=== PATIENT | female | born 1955 | race American Indian/Alaskan Native ===

== ENCOUNTER 2017-06-28 08:28 | Emergency (ER) | payer BC ==
[2017-06-28] MEDS ORDERED: ASPIRIN PO ONE (08:48)
[2017-06-28 09:36] LABS: Basophils # (Auto) 0.1 K/mm3 (0.0-0.1); Basophils % (Auto) 0.6 % (0.0-1.8); Eosinophils # (Auto) 0.3 K/mm3 (0.0-0.4); Eosinophils % (Auto) 2.8 % (0.0-4.3); Hematocrit 37.8 % (30.3-42.9); Hemoglobin 12.6 gm/dl (10.1-14.3); Lymphocytes # (Auto) 3.7 K/mm3 (1.2-5.4); Lymphocytes % (Auto) 39.3 % (13.4-35.0); Mean Corpuscular HGB Conc 33 % (30-34); Mean Corpuscular Hemoglobin 27 pg (28-32); Mean Corpuscular Volume 82 fl (79-97); Monocytes # (Auto) 0.7 K/mm3 (0.0-0.8); Monocytes % (Auto) 7.5 % (0.0-7.3); Platelet Count 180 K/mm3 (140-440); Red Cell Distribution Width 14.7 % (13.2-15.2)
[2017-06-28] MEDS ORDERED: MOTRIN PO ONE (09:45)
[2017-06-28 09:50] LABS: BUN/Creatinine Ratio 28; Blood Urea Nitrogen 22 mg/dL (7-17); Calcium 9.3 mg/dL (8.4-10.2); Hemolysis Index 2
[2017-06-28] MEDS ORDERED: CATAPRES PO ONE (09:55)
[2017-06-28] MEDS ORDERED: TORADOL IM ONE (09:59)
[2017-06-28] MEDS ORDERED: FLEXERIL PO ONE (09:59)
--- NOTE | 2017-06-28 10:01 | Emergency Department Report ---
Blank Doc - Documentation Documentation: Patient is a 61-year-old female history of hypertension and diabetes who is presenting with left-sided chest pain. Patient states it hurts worse when she moves and lifts her arm. She does do some heavy lifting at work. Patient denies any shortness of breath or pleuritic chest pain. Patient's EKG is within normal limits because of her history of diabetes and possibility of atypical presentation f chest pain and the fact that the patient has had 2 episodes of chest pain in the last several months we will do a least 2 troponins to rule out OR at this time. Patient will be reassessed but BRYSON or
--- NOTE | 2017-06-28 10:06 | Emergency Department Report ---
ED Chest Pain HPI - General Chief Complaint: Extremity Problem,Nontraumatic Stated Complaint: BREAST PAIN Time Seen by Provider: 06/28/17 09:36 Source: patient Mode of arrival: Ambulatory Limitations: No Limitations - History of Present Illness Initial Comments: This is a 61-year-old female nontoxic, well nourished in appearance, no acute signs of distress presents to the ED with c/o of left lateral chest pain. Patient stated pain started yesterday during work and worsened when she wake up this morning around 4 AM. 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 Patient stated that chest pain is relieved with rest and aggravated with movement of the left upper arm and palpation. Patient denies pleuritic chest pain. Patient denies shortness of breathe, fever , chills, headache, nausea, vomiting, numbness, tingling, back pain, or hemoptysis. Patient states allergies to PCN. PMH includes HTN and DM. Patient stated she missed her dose of blood pressure medication this morning. MD Complaint: chest pain -: This morning Onset: other (movement and palpation) Pain Location: left chest Pain Radiation: none Severity: mild Severity scale (0 -10): 8 Quality: aching Consistency: intermittent Improves With: rest Worsens With: palpation, movement re: denies: nausea, vomting, diaphoresis, dyspnea, sense of impending doom Other Symptoms: denies: cough, fever, syncope, rash, acid taste in mouth, leg swelling, palpitations, burping Treatments Prior to Arrival: none Aspirin use within the Past 7 Days: (0) No - Related Data On Oral Contraceptives: No Previous Rx's Medication Instructions Recorded Last Taken Type Cyclobenzaprine [Flexeril] 10 mg PO QHS PRN #7 tablet 06/28/17 Unknown Rx Ibuprofen [Motrin] 600 mg PO Q8H PRN #30 tablet 06/28/17 Unknown Rx Allergies Allergy/AdvReac Type Severity Reaction Status Date / Time Penicillins Allergy Hives Verified 06/28/17 08:42 Heart Score - HEART Score History: Slightly suspicious EKG: Normal Age: 45-65 Risk factors: 1-2 risk factors Troponin: < normal limit HEART Score: 2 - Critical Actions Critical Actions: 0-3 pts:0.9-1.7%risk of adverse cardiac event.Candidate for discharge ED Review of Systems ROS: Stated complaint: BREAST PAIN Other details as noted in HPI Constitutional: denies: chills, fever Eyes: denies: eye pain, eye discharge, vision change ENT: denies: ear pain, throat pain Respiratory: denies: cough, shortness of breath, wheezing Cardiovascular: chest pain. denies: palpitations Endocrine: no symptoms reported Gastrointestinal: denies: abdominal pain, nausea, diarrhea Genitourinary: denies: urgency, dysuria, discharge Musculoskeletal: denies: back pain, joint swelling, arthralgia Skin: denies: rash, lesions Neurological: denies: headache, weakness, paresthesias Psychiatric: denies: anxiety, depression Hematological/Lymphatic: denies: easy bleeding, easy bruising ED Past Medical Hx - Past Medical History Hx Hypertension: Yes Hx Diabetes: Yes - Social History Smoking Status: Current Every Day Smoker Substance Use Type: None - Medications Home Medications: Home Medications Medication Instructions Recorded Confirmed Last Taken Type Cyclobenzaprine [Flexeril] 10 mg PO QHS PRN #7 tablet 06/28/17 Unknown Rx Ibuprofen [Motrin] 600 mg PO Q8H PRN #30 tablet 06/28/17 Unknown Rx ED Physical Exam - General Limitations: No Limitations General appearance: alert, in no apparent distress - Head Head exam: Present: atraumatic, normocephalic - Eye Eye exam: Present: normal appearance Pupils: Present: normal accommodation - ENT ENT exam: Present: normal exam, mucous membranes moist - Neck Neck exam: Present: normal inspection, full ROM. Absent: tenderness, meningismus, lymphadenopathy - Respiratory Respiratory exam: Present: normal lung sounds bilaterally. Absent: respiratory distress, wheezes, rales, rhonchi, stridor, chest wall tenderness, accessory muscle use, decreased breath sounds, prolonged expiratory - Cardiovascular Cardiovascular Exam: Present: regular rate, normal rhythm, normal heart sounds. Absent: bradycardia, tachycardia, irregular rhythm, systolic murmur, diastolic murmur, rubs, gallop - GI/Abdominal GI/Abdominal exam: Present: soft, normal bowel sounds. Absent: distended, tenderness, guarding, rebound, rigid, diminished bowel sounds - Rectal Rectal exam: Present: deferred - Extremities Exam Extremities exam: Present: normal inspection, full ROM, normal capillary refill - Back Exam Back exam: Present: normal inspection, full ROM - Neurological Exam Neurological exam: Present: alert, oriented X3, normal gait - Psychiatric Psychiatric exam: Present: normal affect, normal mood - Skin Skin exam: Present: warm, dry, intact, normal color. Absent: rash ED Course Vital Signs 06/28/17 06/28/17 06/28/17 08:37 09:55 11:52 Temperature 98 F Pulse Rate 76 56 L 55 L Respiratory 18 22 Rate Blood Pressure 148/104 Blood Pressure 173/62 118/75 [Left] O2 Sat by Pulse 95 100 97 Oximetry - Reevaluation(s) Reevaluation #1: 06/28/17 10:22 Patient is speaking in full sentences with no signs of distress noted. Reevaluation #2: 06/28/17 11:16 Patient is rest comfortably with no signs of distress. Patient stated that symptoms has resolved after medical treatment. Vital signs stable. Pending 2nd troponin. - Consultations Consultation #1: 06/28/17 10:22 Patient has been consulted with Dr. Mireles about patient history, physical exam , and labs and examined and screened patient and agrees to ED plan of care and discharge plan of care. MUNIRA score - Munira Score Age > 65: (0) No Aspirin use within the Past 7 Days: (0) No 3 or more CAD Risk Factors: (0) No 2 or more Angina events in past 24 hrs: (0) No Known CAD with more than 50% Stenosis: (0) No Elevated Cardiac Markers: (0) No ST Deviation Greater than 0.5mm: (0) No MUNIRA Score: 0 ED Medical Decision Making - Lab Data Result diagrams: 06/28/17 08:54 06/28/17 08:54 - Medical Decision Making This is a 61-year-old female that presents with left muscle chest strain. Patient is stable and was examined by me. Xray of chest has been obtained and dictated by the radiologist. EKG obtained with normal sinus rhythm and No ST abnormalities. Labs obtained with 2 negative trop. Patient recevied Troadol and flexeril in the ED which patient symptoms has resolved and subsided. Patient was instructed not to operate any machinery after discharged due to possible drowsiness of Flexeril which patient stated that a family member will pick her up and drive her home after discharge. HEART and MUNIRA score within normal limits. Patient was instructed to Follow-up with a primary care doctor in 3-5 days or if symptoms worsen and continue return to emergency room as soon as possible. At time of discharge, the patient does not seem toxic or ill in appearance. No acute signs of distress noted. Patient agrees to discharge treatment plan of care. No further questions noted by the patient. Critical care attestation.: If time is entered above; I have spent that time in minutes in the direct care of this critically ill patient, excluding procedure time. ED Disposition Clinical Impression: Left sided chest pain Disposition: DC-01 TO HOME OR SELFCARE Is pt being admited?: No Does the pt Need Aspirin: No Condition: Stable Instructions: Chest Pain (ED), Muscle Strain (ED), Ibuprofen (By mouth), Cyclobenzaprine (By mouth) Additional Instructions: Follow-up with a primary care doctor in 3-5 days or if symptoms worsen and continue return to emergency room as soon as possible. Take ibuprofen and Flexeril as prescribed. Do not operate heavy machinery while taking Flexeril due to sedation Prescriptions: Cyclobenzaprine [Flexeril] 10 mg PO QHS PRN #7 tablet PRN Reason: Muscle Spasm Ibuprofen [Motrin] 600 mg PO Q8H PRN #30 tablet PRN Reason: Pain Referrals: PRIMARY CARE, [Referring] - 3-5 Days RAFIA HSIEH MD [Staff Physician] - 3-5 Days [facility] [Outside] - 3-5 Days [facility] [Outside] - 3-5 Days Forms: Work/School Release Form(ED)
--- NOTE | 2017-06-28 11:04 | XRay Report ---
ROUTINE CHEST, TWO VIEWS: HISTORY: chest pain. The trachea, heart, mediastinal contour, lung richards and bony thorax are unremarkable. IMPRESSION: Unremarkable chest x-ray.
[2017-06-28 11:52] VITALS: BP 118/75
== END 2017-06-28 12:45 | disposition home or self-care (01) ==
LOC: ED 08:28
DX: I10 Essential (primary) hypertension (principal); E11.9 Type 2 diabetes mellitus without complications; F17.200 Nicotine dependence, unspecified, uncomplicated; Z88.0 Allergy status to penicillin
CPT/HCPCS: 36415; 71046; 80048; 84484; 85025; 93005; 93010; 96372; 99284; J1885

== ENCOUNTER 2017-08-09 08:57 | Outpatient (CLI) | payer BC ==
--- NOTE | 2017-08-09 16:34 | Ultrasound Report ---
FINAL REPORT EXAM: US TRANSVAGINAL HISTORY: PELVIC AND PERINEAL PAIN TECHNIQUE: Ultrasound evaluation of the pelvis using TRANSVAGINAL technique PRIORS: Transabdominal pelvic ultrasound 08/09/2017 FINDINGS: Uterus size and shape are normal, 7.0 x 3.2 x 4.7 cm. No evidence of uterine mass. Nonspecific scattered punctate echogenic foci may be vascular atherosclerotic calcification. The endometrium is homogenous. Endometrial thickness is 4.0mm. There is no slight cul-de-sac free fluid and slight free fluid adjacent to the left adnexa. Normal ovarian size. No evidence of solid ovarian mass. Ovarian/adnexal blood flow is present. The adnexa are normal. Ovarian punctate echogenic foci may also be vascular atherosclerotic calcification. Right ovary: 4.4 x 2.7 x 2.7 cm Left ovary: 3.9 x 2.5 x 1.5 cm IMPRESSION: Nonspecific slight cul-de-sac and left adnexal free fluid Nonspecific uterine and ovarian punctate echogenic foci may be atherosclerotic vascular calcification No evidence of pelvic mass
--- NOTE | 2017-08-09 16:34 | Ultrasound Report ---
FINAL REPORT EXAM: US PELVIC COMPLETE HISTORY: PELVIC AND PERINEAL PAIN TECHNIQUE: Ultrasound evaluation of the pelvis using TRANSABDOMINAL technique PRIORS: Endovaginal pelvic ultrasound 08/09/2017 FINDINGS: Uterus size and shape are normal, 7.0 x 3.2 x 4.7 cm. No evidence of uterine mass. Nonspecific scattered punctate echogenic foci may be vascular atherosclerotic calcification. The endometrium is homogenous. Endometrial thickness is 4.0mm. There is no slight cul-de-sac free fluid and slight free fluid adjacent to the left adnexa. Normal ovarian size. No evidence of solid ovarian mass. Ovarian/adnexal blood flow is present. The adnexa are normal. Ovarian punctate echogenic foci may also be vascular atherosclerotic calcification. Right ovary: 4.4 x 2.7 x 2.7 cm Left ovary: 3.9 x 2.5 x 1.5 cm IMPRESSION: Nonspecific slight cul-de-sac and left adnexal free fluid Nonspecific uterine and ovarian punctate echogenic foci may be atherosclerotic vascular calcification No evidence of pelvic mass
== END 2017-08-09 08:58 | disposition home or self-care (01) ==
LOC: US 08:57
PROVIDERS: ATTEND Obstetrics & Gynecology
DX: Z12.31 Encounter for screening mammogram for malignant neoplasm of breast (principal); R10.2 Pelvic and perineal pain; R93.8 Abnormal findings on diagnostic imaging of other specified body structures; F17.210 Nicotine dependence, cigarettes, uncomplicated; I10 Essential (primary) hypertension; E11.9 Type 2 diabetes mellitus without complications; E07.9 Disorder of thyroid, unspecified
CPT/HCPCS: 76830; 76856; 77067

== ENCOUNTER 2017-09-13 08:53 | Outpatient (CLI) | payer BC ==
--- NOTE | 2017-09-13 17:01 | Cat Scan Report ---
FINAL REPORT EXAM: CT ABDOMEN PELVIS W CON HISTORY: LEFT LOWER QUADRANT PAIN TECHNIQUE: Initially, CT of the abdomen and pelvis was performed after the administration of intravenous contrast. Subsequently, CT of the abdomen and pelvis was performed in the delayed phase. Reconstructions were included in the coronal and sagittal planes. PRIORS: Pelvic ultrasound from 08/09/2017. FINDINGS: Lower thorax: In the medial aspect of the right lower lobe, there is a focal ovoid patchy opacity measuring 17 millimeters. The visualized portions of the heart are normal. Liver: The liver is diffusely nodular in contour consistent with hepatic cirrhosis. No intrahepatic biliary duct dilation. There is a subtle focal area of hyper enhancement in the periphery of the right hepatic lobe on series 2, image 19 measuring approximately 11 millimeters. Gallbladder/ biliary system: Cholelithiasis is seen. The common bile duct appears nondilated. Spleen: No splenic lesions are seen. Pancreas: In the tail of the pancreas, there is a multilobular low-attenuation lesion with peripheral calcifications measuring 3.4 x 2.0 centimeters. No pancreatic duct dilation. No peripancreatic inflammation. Kidneys: No renal masses, cysts or hydronephrosis. Adrenal glands: No adrenal masses. Vasculature: Upper abdominal varices are seen. Paraesophageal varices are seen. The abdominal aorta is nondilated. Atherosclerotic calculi are seen in the abdominal aorta. Lymph nodes: No enlarged lymph nodes are seen in the abdomen or pelvis. Bowel, mesentery, peritoneum: No bowel obstruction. No free fluid or free air. The appendix is normal. No colonic diverticulosis. No bowel wall thickening. There is a moderate volume of retained stool throughout the colon. Urinary bladder: No filling defects are seen. Pelvis: Normal anatomy is noted. No masses. Abdominal wall: No abdominal wall hernia or other subcutaneous findings. Bones: Degenerative changes are seen in the spine. Grade 1 anterolisthesis of L4 on L5 is likely chronic related to degenerative change. IMPRESSION: 1. Findings of hepatic cirrhosis with upper abdominal and paraesophageal varices. 2. Nonspecific hyper attenuating lesion in the periphery of the right hepatic lobe may represent a transient hepatic attenuation difference versus a regenerative nodule. Hepatocellular carcinoma is not excluded. Recommend further evaluation with dedicated hepatic CT or MRI. 3. Nonspecific pancreatic tail lesion. This can be further assessed on the dedicated hepatic study. 4. Small nodular opacity in the medial aspect of the right lower lobe may represent scarring versus a pulmonary nodule. Recommend further evaluation with chest CT to assess for other pulmonary nodules. 5. Cholelithiasis. 6. Moderate retained stool in the colon.
--- NOTE | 2017-09-15 06:01 | Magnetic Resonance Report ---
FINAL REPORT EXAM: MR UE JOINT RT WO CON HISTORY: PAIN IN RIGHT WRIST TECHNIQUE: Multisequence, multiplanar MR imaging is obtained through right wrist without contrast PRIORS: None. FINDINGS: A vitamin-E marker is present at the distal aspect of the radius. Subjacent to the marker indicating area of patient pain, there is abductor pollicis longus tendinosis and tenosynovitis seen on axial series 6, images 5-12. Remaining extensor compartments of the wrist are unremarkable. There is mild proximal and ulnar sided edema within the lunate bone on coronal series 8, image 12. No ulnar variance identified. The lunotriquetral ligament appears intact. No fracture or other marrow edema. Type 2 lunate morphology. No hamatolunate edema. No erosive arthropathy or significant intercarpal degenerative findings. There is a 3 millimeter accessory ossicle at the dorsal lip of the distal radius. The scapholunate ligament is intact. The triangular fibrocartilage appears intact. There is fluid in the pre styloid recess, which is within normal limits. Unremarkable appearance of the contents of the carpal tunnel to include the median nerve. Guyon's canal is also unremarkable. IMPRESSION: Mild abductor pollicis longus tendinosis and tenosynovitis are suggested and correspond to area of patient pain as indicated by placed marker. Mild edema in the proximal and ulnar aspect of the lunate bone without fracture or obvious ligamentous injury. There is also no ulnar variance or distal ulnar signal abnormality. Correlation with radiographs for chondrocalcinosis/pyrophosphate arthropathy and/or small erosion is requested.
== END 2017-09-13 08:54 | disposition home or self-care (01) ==
LOC: MRI 08:53
PROVIDERS: ATTEND Orthopaedic Surgery
DX: K80.20 Calculus of gallbladder without cholecystitis without obstruction (principal); M25.531 Pain in right wrist; K86.89 Other specified diseases of pancreas; I85.00 Esophageal varices without bleeding; I70.0 Atherosclerosis of aorta; M47.896 Other spondylosis, lumbar region; K74.60 Unspecified cirrhosis of liver; C22.0 Liver cell carcinoma; R91.1 Solitary pulmonary nodule; F17.210 Nicotine dependence, cigarettes, uncomplicated; I10 Essential (primary) hypertension; E11.9 Type 2 diabetes mellitus without complications; R60.0 Localized edema
CPT/HCPCS: 73221; 74177; Q9967

== ENCOUNTER 2017-09-28 09:02 | Outpatient (CLI) | payer BC ==
[2017-09-28 09:35] LABS: Basophils % (Auto) 0.5 % (0.0-1.8); Eosinophils # (Auto) 0.2 K/mm3 (0.0-0.4); Eosinophils % (Auto) 2.3 % (0.0-4.3); Hematocrit 35.1 % (30.3-42.9); Hemoglobin 12.1 gm/dl (10.1-14.3); Lymphocytes # (Auto) 3.3 K/mm3 (1.2-5.4); Mean Corpuscular HGB Conc 34 % (30-34); Mean Corpuscular Hemoglobin 28 pg (28-32); Mean Corpuscular Volume 81 fl (79-97); Monocytes # (Auto) 0.6 K/mm3 (0.0-0.8); Monocytes % (Auto) 6.5 % (0.0-7.3); Platelet Count 190 K/mm3 (140-440); Red Blood Count 4.32 M/mm3 (3.65-5.03); Red Cell Distribution Width 14.3 % (13.2-15.2)
[2017-09-28 09:45] LABS: INR 0.97 (0.87-1.13); Partial Thromboplastin Time 25.9 Sec. (24.2-36.6)
[2017-09-28 09:57] LABS: Alanine Aminotransferase 15 units/L (7-56); Albumin 4.2 g/dL (3.9-5); BUN/Creatinine Ratio 21; Blood Urea Nitrogen 19 mg/dL (7-17); Calcium 9.4 mg/dL (8.4-10.2); Hemolysis Index 0
== END 2017-09-28 09:03 | disposition home or self-care (01) ==
LOC: LAB 09:02
PROVIDERS: ATTEND Internal Medicine Gastroenterology
DX: B18.2 Chronic viral hepatitis C (principal); I10 Essential (primary) hypertension; E11.9 Type 2 diabetes mellitus without complications; F17.210 Nicotine dependence, cigarettes, uncomplicated; Z88.0 Allergy status to penicillin
CPT/HCPCS: 36415; 80053; 82106; 82140; 85025; 85610; 85730; 87517

== ENCOUNTER 2017-10-04 07:09 | Outpatient (CLI) | payer BC ==
--- NOTE | 2017-10-08 13:01 | Magnetic Resonance Report ---
MRI ABDOMEN WITHOUT AND WITH CONTRAST : 10/04/17 07:30:00 CLINICAL: Chronic viral hepatitis C and abnormal blush of enhancement in the right hepatic lobe as well as a pancreatic tail mass on CT. COMPARISON :09/13/17 CT abdomen and pelvis with contrast TECHNIQUE: Axial T1 in phase and opposed phase, coronal and axial T2 and axial T2 fat sat sequences plus multiphase postcontrast T1 fat sat sequences plus thin and thick slab MRCP sequences on a 1.5 Marcella magnet. 12 cc of Multihance was injected intravenously for the contrast portion of the exam and consent was obtained prior to the administration of the contrast. FINDINGS: The quality of the examination is degraded by breathing motion and coughing throughout the examination. The liver is small with the right lobe measuring 13.5 cm in length. Surface nodularity of the left hepatic lobe and mild heterogeneous diffuse hepatic signal post contrast. However, no distinct liver mass is identified. No corresponding blush of enhancement in the anterior right hepatic lobe as seen on the CT. However, there is too much motion on this exam to exclude such a lesion. Normal hepatic veins and portal vein. No evidence of portal venous thrombus. No varices or portosystemic collateral vessels are identified. The gallbladder and bile ducts are normal. A multicystic enhancing pancreatic tail mass measures approximately 3.7 x 2.4 cm. The mass consists of at least three distinct cysts measuring approximately 1.5 cm each. These cysts demonstrate hyperintensity on the T1 nonenhanced sequence and demonstrate moderate cyst wall enhancement postcontrast. The wall enhancement washes out on delayed sequences. The rest of the pancreas is normal with a normal size pancreas and no signs of pancreatitis. The stomach and duodenum are normal. The spleen is upper limits of normal in size and measures 11 cm. The adrenal glands and kidneys are normal. Normal aorta and inferior vena cava. No ascites. IMPRESSION: 1. Hepatic cirrhosis but no signs of portal hypertension. 2. The quality of the examination is insufficient for accurate evaluation of hepatic nodularity, assessment of abnormal enhancement and for identifying and excluding hepatic tumor. 3. 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 4. No signs of acute or chronic pancreatitis.
== END 2017-10-04 07:10 | disposition home or self-care (01) ==
LOC: MRI 07:09
PROVIDERS: ATTEND Internal Medicine Gastroenterology
DX: K74.60 Unspecified cirrhosis of liver (principal); K86.2 Cyst of pancreas; I10 Essential (primary) hypertension; E11.9 Type 2 diabetes mellitus without complications; F17.210 Nicotine dependence, cigarettes, uncomplicated; Z88.0 Allergy status to penicillin
CPT/HCPCS: 74183

== ENCOUNTER 2017-11-30 10:30 | Emergency (ER) | payer BC ==
[2017-11-30 10:56] VITALS: BP 171/84
[2017-11-30] MEDS ORDERED: TORADOL IM ONE (11:23)
--- NOTE | 2017-11-30 11:26 | Emergency Department Report ---
ED Lower Extremity HPI - General Chief Complaint: Extremity Injury, Lower Stated Complaint: PAIN OM GROIN AREA Source: patient Mode of arrival: Ambulatory Limitations: No Limitations - History of Present Illness Initial Comments: a 62-year-old after Citizen [place] female who presents with right forearm pain and right thigh numb for 1 year. Patient reports symptoms increased over the past few days but today unbearable. Patient reports pain is 7 out of 10 on pain scale and worse with ambulation or movement. She reports pain is a dull achy sensation that is constant. Patient reports some numbness to left thigh. States it feels like something is pushing by constantly. She is currently taken [place] is without improvement of symptoms. Patient states she went to [facility] [facility] Dr. Meade in August and had multiple tests including MRI but did not receive results. She denies swelling, erythema, paresthesia, weakness, fever recent injury, and chest pain. - Related Data Home Medications Medication Instructions Recorded Confirmed Last Taken metFORMIN [Glucophage] 500 mg PO QPM 10/19/16 10/19/16 10/18/16 Previous Rx's Medication Instructions Recorded Last Taken Type Losartan [Cozaar] 50 mg PO QDAY #30 tablet 10/20/16 Unknown Rx Metformin HCl [Glucophage] 1,000 mg PO BID #60 tablet 10/20/16 Unknown Rx amLODIPine 5 mg PO DAILY #30 10/20/16 Unknown Rx Cyclobenzaprine [Flexeril] 10 mg PO QHS PRN #7 tablet 06/28/17 Unknown Rx Ibuprofen [Motrin] 600 mg PO Q8H PRN #30 tablet 06/28/17 Unknown Rx Naproxen [Naprosyn] 500 mg PO TID #15 tablet 11/30/17 Unknown Rx Allergies Allergy/AdvReac Type Severity Reaction Status Date / Time Penicillins Allergy Hives Verified 11/30/17 10:55 ED Review of Systems ROS: Stated complaint: PAIN OM GROIN AREA Other details as noted in HPI ED Past Medical Hx - Past Medical History Previous Medical History?: Yes Hx Hypertension: Yes Hx Diabetes: Yes - Surgical History Past Surgical History?: No - Social History Smoking Status: Current Every Day Smoker Substance Use Type: Alcohol - Medications Home Medications: Home Medications Medication Instructions Recorded Confirmed Last Taken Type metFORMIN [Glucophage] 500 mg PO QPM 08/17/17 08/17/17 08/16/17 History Losartan [Cozaar] 50 mg PO QDAY #30 tablet 10/20/16 Unknown Rx Metformin HCl [Glucophage] 1,000 mg PO BID #60 tablet 10/20/16 Unknown Rx amLODIPine 5 mg PO DAILY #30 10/20/16 Unknown Rx Cyclobenzaprine [Flexeril] 10 mg PO QHS PRN #7 tablet 06/28/17 Unknown Rx Ibuprofen [Motrin] 600 mg PO Q8H PRN #30 tablet 06/28/17 Unknown Rx Naproxen [Naprosyn] 500 mg PO TID #15 tablet 11/30/17 Unknown Rx ED Physical Exam - General Limitations: No Limitations ED Course Vital Signs 11/30/17 10:51 Temperature 98.2 F Pulse Rate 100 H Respiratory 18 Rate Blood Pressure 171/84 O2 Sat by Pulse 99 Oximetry ED Lower Extremity MDM - Radiology Data Radiology results: report reviewed, image reviewed LLE VENOUS DUPLEX COMPLETED. VAS LAB PRELIMINARY REPORT; NO EVIDENCE OF DVT/SVT NOTED IN VESSELS/SEGMENTS EXAMINED. PHYSICIANS REPORT TO FOLLOW...(RSK) Critical care attestation.: If time is entered above; I have spent that time in minutes in the direct care of this critically ill patient, excluding procedure time. ED Disposition Clinical Impression: Left leg pain Strain of hip flexor Qualifiers: Encounter type: initial encounter Laterality: left Qualified Code(s): S76.012A - Strain of muscle, fascia and tendon of left hip, initial encounter Disposition: TO HOME OR SELFCARE Is pt being admited?: No Does the pt Need Aspirin: No Condition: Stable Instructions: Muscle Strain (ED), Hip Sprain (ED) Additional Instructions: Rest Use ice or heat on affected area for 20 minutes and off for 2 hours. Take pain medication as needed for pain. Follow up with Primary Care Provider in 2-3 days. Prescriptions: Naproxen [Naprosyn] 500 mg PO TID #15 tablet Referrals: HENRIQUE HENLEY MD [Staff Physician] - 3-5 Days CARA TAI MD [Staff Physician] - 3-5 Days Forms: Work/School Release Form(ED) Time of Disposition: 13:59 Print Language: RUSSIAN
== END 2017-11-30 14:07 | disposition home or self-care (01) ==
LOC: ED 10:30
DX: S76.012A Strain of muscle, fascia and tendon of left hip, initial encounter (principal); F17.200 Nicotine dependence, unspecified, uncomplicated; I10 Essential (primary) hypertension; E11.9 Type 2 diabetes mellitus without complications; Z88.0 Allergy status to penicillin; X58.XXXA Exposure to other specified factors, initial encounter; Y93.89 Activity, other specified; Y92.89 Other specified places as the place of occurrence of the external cause; Y99.8 Other external cause status
CPT/HCPCS: 93971; 96372; 99283; J1885

== ENCOUNTER 2017-12-05 12:32 | Outpatient (CLI) | payer BC ==
--- NOTE | 2017-12-05 13:26 | XRay Report ---
LUMBOSACRAL SPINE, FIVE VIEWS: HISTORY: Low back pain. Moderate degenerative disc disease and facet arthropathy are identified at L4-5. The remaining levels are within normal limits. No evidence for fracture, subluxation or bone lesion. No pars defect or high-grade neural foraminal narrowing is identified on the oblique images. IMPRESSION: Moderate degenerative changes at L4-5.
== END 2017-12-05 12:33 | disposition home or self-care (01) ==
LOC: XRAY 12:32
PROVIDERS: ATTEND Orthopaedic Surgery
DX: M47.896 Other spondylosis, lumbar region (principal); I10 Essential (primary) hypertension; E11.9 Type 2 diabetes mellitus without complications; F17.210 Nicotine dependence, cigarettes, uncomplicated; Z88.0 Allergy status to penicillin
CPT/HCPCS: 72110

== ENCOUNTER 2019-03-07 13:52 | Outpatient (CLI) | payer OTHER ==
[2019-03-07 14:13] LABS: Basophils # (Auto) 0.1 K/mm3 (0.0-0.1); Basophils % (Auto) 0.8 % (0.0-1.8); Eosinophils # (Auto) 0.2 K/mm3 (0.0-0.4); Eosinophils % (Auto) 2.7 % (0.0-4.3); Hematocrit 35.7 % (30.3-42.9); Hemoglobin 11.7 gm/dl (10.1-14.3); Lymphocytes # (Auto) 3.2 K/mm3 (1.2-5.4); Lymphocytes % (Auto) 39.5 % (13.4-35.0); Mean Corpuscular HGB Conc 33 % (30-34); Mean Corpuscular Volume 82 fl (79-97); Monocytes # (Auto) 0.5 K/mm3 (0.0-0.8); Monocytes % (Auto) 6.4 % (0.0-7.3); Platelet Count 218 K/mm3 (140-440); Red Blood Count 4.36 M/mm3 (3.65-5.03); Red Cell Distribution Width 15.6 % (13.2-15.2)
[2019-03-07 14:42] LABS: Alanine Aminotransferase 17 units/L (7-56); Albumin 4.4 g/dL (3.9-5); BUN/Creatinine Ratio 19; Blood Urea Nitrogen 19 mg/dL (7-17); Calcium 9.4 mg/dL (8.4-10.2); Chol/HDL Ratio 3.09 %; HDL Cholesterol 64 mg/dL (40-59); Hemolysis Index 9; LDL Cholesterol,Direct 125 mg/dL (50-130)
[2019-03-07 14:57] LABS: Hepatitis B Surface Antigen Non-Reactive (Negative); Hepatitis C Virus Antibody Reactive (NonReactive)
[2019-03-13 17:13] LABS: Vitamin D, 25-OH, D2 <4 ng/mL
== END 2019-03-07 13:53 | disposition home or self-care (01) ==
LOC: LAB 13:52
PROVIDERS: ATTEND Nurse Practitioner
DX: Z13.0 Encounter for screening for diseases of the blood and blood-forming organs and certain disorders involving the immune mechanism (principal); I10 Essential (primary) hypertension; E11.9 Type 2 diabetes mellitus without complications
CPT/HCPCS: 36415; 80053; 80061; 80074; 82306; 83036; 84436; 84443; 84479; 85025

== ENCOUNTER 2019-04-03 21:03 | Emergency (ER) | payer OTHER ==
[2019-04-03] MEDS ORDERED: ONDANSETRON 4 MG/2 ML INJ IV ONE (21:23)
[2019-04-03] MEDS ORDERED: FAMOTIDINE 20 MG/2 ML INJ IV ONE (21:23)
[2019-04-03] MEDS ORDERED: SODIUM CHLORIDE 0.9% 1000 ML 1,000 ML IV ONE (21:23)
[2019-04-03 22:30] LABS: Hematocrit 33.8 % (30.3-42.9); Hemoglobin 10.9 gm/dl (10.1-14.3); Mean Corpuscular HGB Conc 32 % (30-34); Mean Corpuscular Volume 82 fl (79-97); Platelet Count 234 K/mm3 (140-440); Red Blood Count 4.14 M/mm3 (3.65-5.03)
--- NOTE | 2019-04-03 22:31 | Emergency Department Report ---
ED General Adult HPI - General Stated complaint: SEIZURES Time Seen by Provider: 04/03/19 21:56 Source: patient Mode of arrival: Stretcher Limitations: No Limitations - History of Present Illness Initial comments: Patient is a 63-year-old female that presents emergency room complaints of acute vomiting and altered mental status secondary to all call intake. 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 Patient denies pain. Patient states that she feels better since vomiting. Patient is answering questions appropriately. Patient denies chest pain. Patient denies shortness of breath. Patient denies abdominal pain. -: Sudden Consistency: now resolved Improves with: none Worsens with: none Associated Symptoms: nausea/vomiting. denies: chest pain, cough, diaphoresis, fever/chills, headaches, loss of appetite, malaise, rash, seizure, shortness of breath, syncope, weakness Treatments Prior to Arrival: none - Related Data Home Medications Medication Instructions Recorded Confirmed Last Taken metFORMIN [Glucophage] 500 mg PO QPM 10/19/16 01/16/18 01/15/18 Previous Rx's Medication Instructions Recorded Last Taken Type Losartan [Cozaar] 50 mg PO QDAY #30 tablet 10/20/16 01/14/18 Rx Metformin HCl [Glucophage] 1,000 mg PO BID #60 tablet 10/20/16 01/15/18 Rx amLODIPine 5 mg PO DAILY #30 10/20/16 01/15/18 Rx Naproxen [Naprosyn] 500 mg PO TID #15 tablet 11/30/17 01/08/18 Rx Diclofenac Potassium 50 mg PO TID PRN #15 tablet 03/07/18 Unknown Rx Ondansetron [Zofran Odt] 4 mg PO Q8HR PRN #15 tab.rapdis 04/04/19 Unknown Rx Allergies Allergy/AdvReac Type Severity Reaction Status Date / Time Penicillins Allergy Hives Verified 11/30/17 10:55 ED Review of Systems ROS: Stated complaint: SEIZURES Other details as noted in HPI Constitutional: denies: chills, fever Eyes: denies: eye pain, eye discharge, vision change ENT: denies: ear pain, throat pain Respiratory: denies: cough, shortness of breath, wheezing Cardiovascular: denies: chest pain, palpitations Endocrine: no symptoms reported Gastrointestinal: nausea, vomiting. denies: abdominal pain, diarrhea Genitourinary: denies: urgency, dysuria, discharge Musculoskeletal: denies: back pain, joint swelling, arthralgia Skin: denies: rash, lesions Neurological: denies: headache, weakness, paresthesias Psychiatric: denies: anxiety, depression Hematological/Lymphatic: denies: easy bleeding, easy bruising ED Past Medical Hx - Past Medical History Previous Medical History?: Yes Hx Hypertension: Yes Hx Diabetes: Yes - Surgical History Past Surgical History?: No - Family History Family history: no significant - Social History Smoking Status: Former Smoker Substance Use Type: Alcohol - Medications Home Medications: Home Medications Medication Instructions Recorded Confirmed Last Taken Type metFORMIN [Glucophage] 500 mg PO QPM 10/19/16 01/16/18 01/15/18 History Losartan [Cozaar] 50 mg PO QDAY #30 tablet 10/20/16 01/16/18 01/14/18 Rx Metformin HCl [Glucophage] 1,000 mg PO BID #60 tablet 10/20/16 01/16/18 01/15/18 Rx amLODIPine 5 mg PO DAILY #30 10/20/16 01/16/18 01/15/18 Rx Naproxen [Naprosyn] 500 mg PO TID #15 tablet 11/30/17 01/16/18 01/08/18 Rx Diclofenac Potassium 50 mg PO TID PRN #15 tablet 03/07/18 Unknown Rx Ondansetron [Zofran Odt] 4 mg PO Q8HR PRN #15 tab.rapdis 04/04/19 Unknown Rx ED Physical Exam - General Limitations: No Limitations General appearance: alert, in no apparent distress - Head Head exam: Present: atraumatic, normocephalic - Eye Eye exam: Present: normal appearance - ENT ENT exam: Present: mucous membranes moist - Neck Neck exam: Present: normal inspection - Respiratory Respiratory exam: Present: normal lung sounds bilaterally. Absent: respiratory distress, wheezes, rales - Cardiovascular Cardiovascular Exam: Present: regular rate, normal rhythm. Absent: systolic murmur, diastolic murmur, rubs, gallop - GI/Abdominal GI/Abdominal exam: Present: soft, normal bowel sounds. Absent: distended, tenderness, guarding - Rectal Rectal exam: Present: deferred - Extremities Exam Extremities exam: Present: normal inspection - Back Exam Back exam: Present: normal inspection - Neurological Exam Neurological exam: Present: alert, oriented X3 - Psychiatric Psychiatric exam: Present: normal affect, normal mood - Skin Skin exam: Present: warm, dry, intact, normal color. Absent: rash ED Course Vital Signs 04/03/19 21:30 Temperature 98 F Pulse Rate 106 H Respiratory 18 Rate O2 Sat by Pulse 96 Oximetry - Reevaluation(s) Reevaluation #1: I discussed all results with patient and family and daughter. Discussed plan of care with patient. Patient and daughter agrees with discharge. Patient will be discharged home. Patient and daughter given discharge instructions. Patient will be discharged to the care of her daughter. Daughter voiced understanding of discharge instructions. 04/04/19 03:14 ED Medical Decision Making - Lab Data Result diagrams: 04/03/19 21:44 04/03/19 21:44 - Radiology Data Radiology results: report reviewed, image reviewed interpreted by me: No acute findings on chest x-ray. CHEST 1 VIEW INDICATION / CLINICAL INFORMATION: cough. COMPARISON: None available. FINDINGS: SUPPORT DEVICES: None. HEART / MEDIASTINUM: No significant abnormality. LUNGS / PLEURA: No significant pulmonary or pleural abnormality.. No pneumothorax. ADDITIONAL FINDINGS: No significant additional findings. IMPRESSION: 1. No acute findings. - Medical Decision Making Patient is a 63-year-old female that presents emergency room for nausea vomiting and altered mental status secondary to acute alcohol intoxication. Patient had labs done shows acute renal insufficiency. Patient given fluids. Patient's blood alcohol elevated at 1.5. Patient discharged to the care of her daughter. Patient's chemistry repeated and improved after fluids. - Differential Diagnosis etoh,ams. n/v Critical care attestation.: If time is entered above; I have spent that time in minutes in the direct care of this critically ill patient, excluding procedure time. ED Disposition Clinical Impression: Renal insufficiency Acute alcohol intoxication Qualifiers: Complication of substance-induced condition: uncomplicated Qualified Code(s): F10.920 - Alcohol use, unspecified with intoxication, uncomplicated Nausea & vomiting Qualifiers: Vomiting type: unspecified Vomiting Intractability: non-intractable Qualified Code(s): R11.2 - Nausea with vomiting, unspecified Gastritis Qualifiers: Gastritis type: alcoholic Chronicity: acute Gastritis bleeding: without bleeding Qualified Code(s): K29.20 - Alcoholic gastritis without bleeding Disposition: DC-01 TO HOME OR SELFCARE Is pt being admited?: No Does the pt Need Aspirin: No Condition: Stable Instructions: Gastritis (ED), At-Risk Alcohol Use (ED), Acute Nausea and Vomiting (ED) Additional Instructions: Patient to follow up with primary care in 2-3 days. Patient to return to ER condition worsens. Patient to rest. Patient to take Tylenol when necessary for pain. Patient to eat a diet. Patient to increase water. Prescriptions: Ondansetron [Zofran Odt] 4 mg PO Q8HR PRN #15 tab.rapdis PRN Reason: Nausea And Vomiting Referrals: PRIMARY CARE, [Primary Care Provider] - 2-3 Days Time of Disposition: 03:14
--- NOTE | 2019-04-03 22:47 | XRay Report ---
CHEST 1 VIEW INDICATION / CLINICAL INFORMATION: cough. COMPARISON: None available. FINDINGS: SUPPORT DEVICES: None. HEART / MEDIASTINUM: No significant abnormality. LUNGS / PLEURA: No significant pulmonary or pleural abnormality.. No pneumothorax. ADDITIONAL FINDINGS: No significant additional findings. IMPRESSION: 1. No acute findings. Signer Name: Yovanny Cesar MD Signed: 04/03/2019 10:43 PM Workstation Name: [id number]
[2019-04-03 22:51] LABS: Calcium 9.6 mg/dL (8.4-10.2)
[2019-04-03 22:55] LABS: Alanine Aminotransferase 14 units/L (7-56); Albumin 4.9 g/dL (3.9-5)
[2019-04-03 23:03] LABS: Bilirubin,Direct < 0.2 mg/dL (0-0.2)
[2019-04-04] MEDS ORDERED: SODIUM CHLORIDE 0.9% 1000 ML 1,000 ML IV ONE (01:44)
[2019-04-04 02:14] LABS: Basophils % (Manual) 0 % (0.0-1.8); Total Cells Counted 100
[2019-04-04 02:15] LABS: Anisocytosis Few; Platelet Estimate Consistent w Auto
[2019-04-04 04:20] LABS: Calcium 8.8 mg/dL (8.4-10.2)
[2019-04-04 05:08] VITALS: BP 116/66
== END 2019-04-04 05:06 | disposition home or self-care (01) ==
LOC: ED 21:03
DX: N28.9 Disorder of kidney and ureter, unspecified (principal); F10.129 Alcohol abuse with intoxication, unspecified; K29.20 Alcoholic gastritis without bleeding; I10 Essential (primary) hypertension; E11.9 Type 2 diabetes mellitus without complications; Z87.891 Personal history of nicotine dependence; Z79.899 Other long term (current) drug therapy; Z88.0 Allergy status to penicillin
CPT/HCPCS: 36415; 71045; 80048; 80076; 83690; 85007; 85025; 96361; 96374; 96375; 99284; J2405; J7030; 80320; G0480

== ENCOUNTER 2019-08-20 15:09 | Emergency (ER) | payer OTHER ==
--- NOTE | 2019-08-20 15:52 | Emergency Department Report ---
Blank Doc - Documentation Documentation: 63-year-old female that presents with uncontrolled BM. Was sent by PCP for milligan gar levels of 580. This initial assessment/diagnostic orders/clinical plan/treatment(s) is/are subject to change based on patient's health status, clinical progression and re- assessment by fellow clinical providers in the ED. Further treatment and workup at subsequent clinical providers discretion. Patient/guardians urged not to elope from the ED as their condition may be serious if not clinically assessed and managed. Initial orders include: 1- Patient sent to MAIN ED for further evaluation and treatment 2- labs 3- UA
[2019-08-20 16:16] LABS: Basophils % (Auto) 0.6 % (0.0-1.8); Eosinophils # (Auto) 0.1 K/mm3 (0.0-0.4); Eosinophils % (Auto) 1.6 % (0.0-4.3); Hematocrit 35.5 % (30.3-42.9); Hemoglobin 11.4 gm/dl (10.1-14.3); Lymphocytes # (Auto) 3.2 K/mm3 (1.2-5.4); Lymphocytes % (Auto) 37.9 % (13.4-35.0); Mean Corpuscular HGB Conc 32 % (30-34); Mean Corpuscular Volume 83 fl (79-97); Monocytes # (Auto) 0.5 K/mm3 (0.0-0.8); Monocytes % (Auto) 5.8 % (0.0-7.3); Platelet Count 211 K/mm3 (140-440); Red Blood Count 4.28 M/mm3 (3.65-5.03); Red Cell Distribution Width 14.8 % (13.2-15.2)
[2019-08-20 16:31] LABS: Albumin 4.4 g/dL (3.9-5); Calcium 9.6 mg/dL (8.4-10.2)
[2019-08-20 16:46] LABS: Bilirubin,Urine NEG (Negative); Blood,Urine NEG (Negative); Color,Urine Straw (Yellow); Mucus,Urine FEW /HPF; Protein,Urine <15 mg/dL mg/dL (Negative); Urobilinogen,Urine < 2.0 mg/dL (<2.0)
[2019-08-20] MEDS ORDERED: INSULIN REGULAR, HUMAN 100 UNITS/1 ML IV ONE ×2 (20:40→22:42)
[2019-08-20] MEDS ORDERED: SODIUM CHLORIDE 0.9% 1000 ML 1,000 ML IV ONE (20:40)
--- NOTE | 2019-08-20 20:40 | Emergency Department Report ---
ED General Adult HPI - General Chief complaint: Hyperglycemia Stated complaint: ELEV BS PUI?: No Time Seen by Provider: 08/20/19 15:51 Source: patient Mode of arrival: Ambulatory Limitations: No Limitations - History of Present Illness Initial comments: Patient is a 63-year-old female that presents emergency room with complaints of hyperglycemia. Patient that she was at her primary care's office and her blood sugar was 561 and she was sent to the emergency room for evaluation. Patient states that her her A1c was 11 4 months ago and she was started on metformin and Victoza and her A1c was rechecked at 8.. Patient denies headache. Patient denies blurry vision. Patient denies abdominal pain. Patient denies chest pain or shortness of breath. Patient denies headache. Patient denies any physical symptoms. Patient states she is compliant with her medications. Patient states she is also trying to lose weight. Patient patient denies urinary frequency. Patient denies thirst. Patient denies recent travel. Patient denies recent international travel. Patient denies exposure to the novel coronavirus. Patient denies sick contacts. Patient denies fever and chills. Patient denies cough. Patient denies diarrhe a. Patient denies coming in contact with anybody with symptoms of the novel coronavirus. - Related Data Home Medications Medication Instructions Recorded Confirmed Last Taken metFORMIN [Glucophage] 500 mg PO QPM 10/19/16 01/16/18 01/15/18 Previous Rx's Medication Instructions Recorded Last Taken Type Losartan [Cozaar] 50 mg PO QDAY #30 tablet 10/20/16 01/14/18 Rx Metformin HCl [Glucophage] 1,000 mg PO BID #60 tablet 10/20/16 01/15/18 Rx amLODIPine 5 mg PO DAILY #30 10/20/16 01/15/18 Rx Naproxen [Naprosyn] 500 mg PO TID #15 tablet 11/30/17 01/08/18 Rx Diclofenac Potassium 50 mg PO TID PRN #15 tablet 03/07/18 Unknown Rx Ondansetron [Zofran Odt] 4 mg PO Q8HR PRN #15 tab.rapdis 04/04/19 Unknown Rx Allergies Allergy/AdvReac Type Severity Reaction Status Date / Time Penicillins Allergy Hives Verified 11/30/17 10:55 ED Review of Systems ROS: Stated complaint: ELEV BS Other details as noted in HPI Constitutional: denies: chills, fever Eyes: denies: eye pain, eye discharge, vision change ENT: denies: ear pain, throat pain Respiratory: denies: cough, shortness of breath, wheezing Cardiovascular: denies: chest pain, palpitations Endocrine: no symptoms reported Gastrointestinal: denies: abdominal pain, nausea, diarrhea Genitourinary: denies: urgency, dysuria, discharge Musculoskeletal: denies: back pain, joint swelling, arthralgia Skin: denies: rash, lesions Neurological: denies: headache, weakness, paresthesias Psychiatric: denies: anxiety, depression Hematological/Lymphatic: denies: easy bleeding, easy bruising ED Past Medical Hx - Past Medical History Previous Medical History?: Yes Hx Hypertension: Yes Hx Diabetes: Yes Hx Liver Disease: Yes (hepatitis C) - Surgical History Past Surgical History?: No - Family History Family history: no significant - Social History Smoking Status: Never Smoker Substance Use Type: None - Medications Home Medications: Home Medications Medication Instructions Recorded Confirmed Last Taken Type metFORMIN [Glucophage] 500 mg PO QPM 10/19/16 01/16/18 01/15/18 History Losartan [Cozaar] 50 mg PO QDAY #30 tablet 10/20/16 01/16/18 01/14/18 Rx Metformin HCl [Glucophage] 1,000 mg PO BID #60 tablet 10/20/16 01/16/18 01/15/18 Rx amLODIPine 5 mg PO DAILY #30 10/20/16 01/16/18 01/15/18 Rx Naproxen [Naprosyn] 500 mg PO TID #15 tablet 11/30/17 01/16/18 01/08/18 Rx Diclofenac Potassium 50 mg PO TID PRN #15 tablet 03/07/18 Unknown Rx Ondansetron [Zofran Odt] 4 mg PO Q8HR PRN #15 tab.rapdis 04/04/19 Unknown Rx ED Physical Exam - General Limitations: No Limitations General appearance: alert, in no apparent distress - Head Head exam: Present: atraumatic, normocephalic - Eye Eye exam: Present: normal appearance, PERRL Pupils: Present: normal accommodation - ENT ENT exam: Present: mucous membranes moist - Neck Neck exam: Present: normal inspection - Respiratory Respiratory exam: Present: normal lung sounds bilaterally. Absent: respiratory distress, wheezes, rales - Cardiovascular Cardiovascular Exam: Present: regular rate, normal rhythm. Absent: systolic murmur, diastolic murmur, rubs, gallop - GI/Abdominal GI/Abdominal exam: Present: soft, normal bowel sounds - Extremities Exam Extremities exam: Present: normal inspection - Back Exam Back exam: Present: normal inspection - Neurological Exam Neurological exam: Present: alert, oriented X3 - Psychiatric Psychiatric exam: Present: normal affect, normal mood - Skin Skin exam: Present: warm, dry, intact, normal color. Absent: rash ED Course Vital Signs 08/20/19 08/20/19 08/20/19 15:52 21:08 23:00 Temperature 98 F 98.2 F Pulse Rate 96 H 82 Respiratory 20 18 25 H Rate Blood Pressure 139/77 127/67 Blood Pressure 156/78 [Right] O2 Sat by Pulse 99 100 100 Oximetry - Reevaluation(s) Reevaluation #1: Unable to obtain peripheral IV. Patient agrees to have a EJ. Left EJ placed without difficulty. See procedure note. Patient will be given fluids and 10 more units of insulin. Patient already received 10 units subcutaneous and had a blood sugar recheck after the 10 units and her sugar went up. 08/20/19 22:41 Reevaluation #2: Patient is received more insulin and fluids. Patient's current blood pressure is 143. Patient denies any chest pain or shortness of breath. Patient denies any physical complaints. I discussed all results and clinical findings with patient. I discussed plan of care with patient. Patient agrees with plan of care. Patient is stable for discharge. Patient will be discharged home. Patient given discharge instructions. Patient voiced understanding of discharge instructions. 08/21/19 00:04 - EJ/Peripheral Line Neck L Time Out Performed: Yes Indications: nurses unable to establis Skin Cleansed in Sterile Fashion: Yes Size: 18 Dressing Placed: Tegaderm, tape Patient Tolerated Procedure: well, no complications ED Medical Decision Making - Lab Data Result diagrams: 08/20/19 15:57 08/20/19 15:57 - Medical Decision Making Patient is a 63-year-old female that presents emergency room with complaints of hyperglycemia. Patient's labs are essentially unremarkable. Patient found to have severe significantly elevated blood sugars. Patient was given 20 units of insulin total and separate doses of 10. Patient's blood sugar improved. Patient was also given normal saline. Patient discharged home. Patient does not require further emergency services. Patient's given discharge instructions. Patient is stable. - Differential Diagnosis Hyperglycemia, DKA, uncontrolled diabetes. Critical care attestation.: If time is entered above; I have spent that time in minutes in the direct care of this critically ill patient, excluding procedure time. ED Disposition Clinical Impression: Hyperglycemia, Dehydration Uncontrolled diabetes mellitus Qualifiers: Diabetes mellitus type: type 2 Glycemic state: with hyperglycemia Qualified Code(s): E11.65 - Type 2 diabetes mellitus with hyperglycemia CKD (chronic kidney disease) Qualifiers: Chronic kidney disease stage: unspecified stage Qualified Code(s): N18.9 - Chronic kidney disease, unspecified Disposition: DC-01 TO HOME OR SELFCARE Is pt being admited?: No Does the pt Need Aspirin: No Condition: Stable Instructions: Diabetes Mellitus Type 2 in Adults (ED), Diabetic Foot Care (ED), Diabetic Hypoglycemia (ED), Meal Planning with Diabetes Exchanges (DC), How to Check Your Blood Sugar (ED), Chronic Kidney Disease (ED) Additional Instructions: Patient to follow-up with primary care in 2 to 3 days. Patient to follow-up with message broker developer in 2 to 3 days. Patient to increase water. Patient to eat a diabetic, heart healthy, low-sodium diet. Patient to monitor blood sugars and blood pressures at home. Patient to keep a blood sugar and blood pressure log and take the logs to her follow-up appointments. Patient to take Tylenol as needed for pain. Patient to continue all medications. Patient to return to the ER if condition worsens, changes or new symptoms arise. Referrals: PRIMARY MD SHAHEED [Primary Care Provider] - 2-3 Days CYN PLATT MD [Staff Physician] - 2-3 Days MAX MONTE MD [Staff Physician] - 2-3 Days Time of Disposition: 00:07
[2019-08-20] MEDS ORDERED: INSULIN REGULAR, HUMAN 100 UNITS/1 ML ONE (22:42)
[2019-08-21 00:34] VITALS: BP 122/75
== END 2019-08-21 00:36 | disposition home or self-care (01) ==
LOC: ED 15:09
DX: E11.65 Type 2 diabetes mellitus with hyperglycemia (principal); E11.22 Type 2 diabetes mellitus with diabetic chronic kidney disease; I12.9 Hypertensive chronic kidney disease with stage 1 through stage 4 chronic kidney disease, or unspecified chronic kidney disease; N18.9 Chronic kidney disease, unspecified; E86.0 Dehydration; Z79.84 Long term (current) use of oral hypoglycemic drugs; Z79.899 Other long term (current) drug therapy; Z88.0 Allergy status to penicillin
CPT/HCPCS: 36415; 36556; 80053; 81001; 82805; 82962; 85025; 96361; 96374; 96376; 99284; J7030; 96375; J1815

== ENCOUNTER 2020-10-19 10:18 | Outpatient (CLI) | payer BC ==
[2020-10-19 11:22] LABS: Albumin 4.5 g/dL (3.9-5); BUN/Creatinine Ratio 18; Blood Urea Nitrogen 20 mg/dL (7-17); Chol/HDL Ratio 2.66 %; HDL Cholesterol 72 mg/dL (40-59); Hemolysis Index 11; LDL Cholesterol,Direct 113 mg/dL (50-130)
[2020-10-19 11:26] LABS: Hematocrit 37.6 % (30.3-42.9); Hemoglobin 12.4 gm/dl (10.1-14.3); Mean Corpuscular HGB Conc 33 % (30-34); Mean Corpuscular Volume 82 fl (79-97); Platelet Count 234 K/mm3 (140-440); Red Cell Distribution Width 15.4 % (13.2-15.2)
== END 2020-10-19 10:19 | disposition home or self-care (01) ==
LOC: LAB 10:18
PROVIDERS: ATTEND Internal Medicine Nephrology
DX: E11.22 Type 2 diabetes mellitus with diabetic chronic kidney disease (principal); N18.31 Chronic kidney disease, stage 3a; D63.1 Anemia in chronic kidney disease; E78.2 Mixed hyperlipidemia
CPT/HCPCS: 36415; 80048; 80061; 82040; 83036; 84100; 85027

== ENCOUNTER 2021-04-05 11:04 | Outpatient (CLI) | payer OTHER ==
--- NOTE | 2021-04-05 14:07 | XRay Report ---
Lumbar spine, 3 views HISTORY: Pain COMPARISON: 12/05/2017. FINDINGS: Mild left convex curvature. Minimal grade 1 anterolisthesis of L4 on L5 related to marked l ower lumbar facet arthropathy. Vertebral body heights are maintained. No evidence of fracture. Modera te multilevel disc space height loss, most pronounced at L4-L5. SI joints are intact. Soft tissues ar e unremarkable. IMPRESSION: Moderate multilevel lumbar spondylosis, as above. No acute process. Signer Name: Burt Sosa MD Signed: 04/05/2021 2:02 PM Workstation Name: [email or web address]
== END 2021-04-05 11:05 | disposition home or self-care (01) ==
LOC: XRAY 11:04
PROVIDERS: ATTEND Internal Medicine
DX: M43.16 Spondylolisthesis, lumbar region (principal); M47.816 Spondylosis without myelopathy or radiculopathy, lumbar region
CPT/HCPCS: 72100